=== PATIENT | male | born 1950 | race Hispanic/Latino ===

== ENCOUNTER 2017-08-24 07:06 | Day surgery (SDC) | payer OTHER ==
[~2017-08-24] VITALS: Ht 165.1 cm; Wt 80.6 kg
[~2017-08-24 07:06] MED LIST: FURO40TA5 PO; LACT10SO PO; LISI40TA4 PO; METO-408 PO; SODIUM CHLORIDE 0.9% 1000ML 1,000 ML IV ONE; SPIR25TA6 PO
[2017-08-24 08:03] VITALS: BP 183/69
[2017-08-24] MEDS ORDERED: PROPOFOL 10 MG/ML 20ML VIAL IV ONE (09:07)
[2017-08-24 09:18] VITALS: BP 89/25
== END 2017-08-24 09:57 ==
LOC: DAH 07:06 → ENDO 07:06
PROVIDERS: ATTEND Internal Medicine Gastroenterology
DX: I85.00 Esophageal varices without bleeding (principal); K76.6 Portal hypertension; K31.89 Other diseases of stomach and duodenum; K74.60 Unspecified cirrhosis of liver; I10 Essential (primary) hypertension; E78.5 Hyperlipidemia, unspecified; C22.0 Liver cell carcinoma; Z90.49 Acquired absence of other specified parts of digestive tract; Z98.890 Other specified postprocedural states; Z68.35 Body mass index [BMI] 35.0-35.9, adult; Z79.899 Other long term (current) drug therapy
CPT/HCPCS: 43235; 93005; A4606; J2704; J7030

== ENCOUNTER 2017-10-26 15:16 | Emergency (ER) | payer OTHER ==
[~2017-10-26 15:16] MED LIST changes: -METO-408 PO; -SODIUM CHLORIDE 0.9% 1000ML 1,000 ML IV ONE
[2017-10-26 15:51] LABS: BASOPHILS % (AUTO) 0.4 % (0.0-5.0); EOSINOPHILS % (AUTO) 3.2 % (0.0-8.0); HEMATOCRIT 38.2 % (42-54); LYMPHOCYTES % (AUTO) 15.5 % (21.0-51.0); MEAN CORPUSCULAR HGB CONC 35.2 g/dL (32.0-36.0); MEAN CORPUSCULAR VOLUME 90.7 fL (79-99); MONOCYTES % (AUTO) 15.4 % (3.0-13.0); NEUTROPHILS % (AUTO) 65.5 % (40.0-77.0); PLATELET COUNT (AUTO) 109 K/uL (130-400); RED BLOOD CELL COUNT(AUTO) 4.21 MIL/uL (4.50-6.20); RED CELL DISTRIBUTION WIDTH 14.9 % (11.0-15.5); WHITE BLOOD COUNT (AUTO) 4.7 K/uL (4.8-10.8)
[2017-10-26 15:59] LABS: CREATININE 1.1 mg/dL (0.5-1.5); POTASSIUM 4.2 mmol/L (3.5-5.1)
[2017-10-26 16:01] LABS: INR 1.02 (0.85-1.15); PARTIAL THROMBOPLASTIN TIME 28.1 SEC (26.3-35.5); PROTHROMBIN TIME 10.7 SEC (9.6-11.6)
[2017-10-26 16:03] LABS: ALBUMIN 3.1 g/dL (3.5-5.0); BILIRUBIN,DIRECT 0.7 mg/dL (0.0-0.3); BILIRUBIN,TOTAL 1.5 mg/dL (0.2-1.0); TOTAL PROTEIN, SERUM 7.5 g/dL (6.0-8.3)
[2017-10-26 16:09] LABS: B-TYPE NATRIURETIC PEPTIDE 259 pg/mL (0-100)
[2017-10-26] MEDS ORDERED: HYDRALAZINE HCL 20 MG/ML VIAL ONE (17:54)
== END 2017-10-26 18:40 | disposition home or self-care (01) ==
LOC: EDH 15:16
DX: I10 Essential (primary) hypertension (principal); E78.5 Hyperlipidemia, unspecified; Z85.05 Personal history of malignant neoplasm of liver; Z90.49 Acquired absence of other specified parts of digestive tract; Z79.899 Other long term (current) drug therapy
CPT/HCPCS: 36415; 71045; 80048; 80076; 82550; 83690; 83880; 84484; 85025; 85610; 85730; 93005; 96374; 99285; J0360